=== PATIENT | female | born 1995 | race African-American/Black ===

== ENCOUNTER 2017-01-12 21:14 | Emergency (ER) | payer MEDICAID ==
[~2017-01-12] VITALS: Ht 175.3 cm; Wt 70.8 kg
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
[2017-01-12 21:31] VITALS: BP 122/68
[2017-01-12 21:34] VITALS: BP 122/68
== END 2017-01-12 21:42 ==
LOC: EMR 21:30
DX: Z02.89 Encounter for other administrative examinations (principal)
CPT/HCPCS: 99283